=== PATIENT | female | born 1950 | race Hispanic/Latino ===

== ENCOUNTER 2023-11-17 11:21 | Emergency (ER) | payer OTHER, MEDICARE ==
[~2023-11-17] VITALS: Ht 157.5 cm; Wt 56.7 kg
[~2023-11-17 11:21] MED LIST: ACAR50TA5 PO; ASPI-1197 PO; ATOR20TA65 PO; FENO54TA6 PO; GLIP10TA9 PO; LOSA25TA41 PO; METF-444 PO
[2023-11-17 12:45] LABS: BASOPHILS # (AUTO) 0.13 K/uL (0.00-0.20); BASOPHILS % (AUTO) 1.8 % (0.0-5.0); EOSINOPHILS # (AUTO) 0.26 K/uL (0.00-0.70); EOSINOPHILS % (AUTO) 3.5 % (0.0-8.0); HEMATOCRIT 40.7 % (36-48); IMMATURE GRANULOCYTE ABSOLUTE 0.01 K/uL (0-1); LYMPHOCYTES # (AUTO) 2.4 K/uL (1.0-4.8); LYMPHOCYTES % (AUTO) 32.8 % (21.0-51.0); MEAN CORPUSCULAR HEMOGLOBIN 30.6 pg (27.0-33.0); MEAN CORPUSCULAR HGB CONC 35.1 g/dL (32.0-36.0); MONOCYTES # (AUTO) 0.7 K/uL (0.1-1.0); MONOCYTES % (AUTO) 9.1 % (3.0-13.0); NEUTROPHILS # (AUTO) 3.9 K/uL (1.8-7.7); NEUTROPHILS % (AUTO) 52.7 % (40.0-77.0); PLATELET COUNT (AUTO) 318 K/uL (130-400); RED BLOOD CELL COUNT(AUTO) 4.68 MIL/uL (4.00-5.50); RED CELL DISTRIBUTION WIDTH 13.1 % (11.0-15.5); WHITE BLOOD COUNT (AUTO) 7.4 K/uL (4.8-10.8)
[2023-11-17 12:53] LABS: CREATININE 0.6 mg/dL (0.5-1.5); POTASSIUM 4.1 mmol/L (3.5-5.1)
[2023-11-17 12:59] LABS: BILIRUBIN,TOTAL 0.4 mg/dL (0.2-1.0); TOTAL PROTEIN, SERUM 8.3 g/dL (6.0-8.3)
[2023-11-17] MEDS: KETOROLAC 15MG/ML VIAL (15MG/ML) IV ONE (12:59)
[2023-11-17] MEDS: 0.9%NACL 1000ML 1,000 ML IV ONE (12:59)
[2023-11-17] MEDS ORDERED: IOHEXOL-350 75 ML VIAL IV ONE (13:16)
[2023-11-17 13:21] LABS: ADD UA MICROSCOPIC YES
[2023-11-17 13:22] LABS: APPEARANCE,URINE CLOUDY (CLEAR); BACTERIA,URINE FEW /HPF (None Seen); BILIRUBIN,URINE NEGATIVE (NEGATIVE); COLOR,URINE LIGHT-YELLOW (YELLOW); GLUCOSE, URINE (UA) >=1000 mg/dL (NEGATIVE); KETONES,URINE NEGATIVE (NEGATIVE); LEUKOCYTE ESTERASE ,URINE 500 Leu/uL (NEGATIVE); MUCUS,URINE RARE LPF (None Seen); NITRATE,URINE 2+ (NEGATIVE); OCCULT BLOOD,URINE NEGATIVE (NEGATIVE); PH,URINE 5.5 (5.0-8.0); PROTEIN,URINE NEGATIVE (NEGATIVE); UROBILINOGEN,URINE 0.2 mg/dL (0.2-1.0); WBC,URINE TNTC /HPF (0-1)
[2023-11-17] MEDS: AMOX/CLAV 875/125MG TAB PO ONE (15:21)
[2023-11-17] MEDS ORDERED: AMOX1TAB16 PO (15:52)
[2023-11-17 15:55] VITALS: BP 110/45; PULSE 74; RESP 18; O2SAT 100
== END 2023-11-17 16:17 | disposition home or self-care (01) ==
LOC: EDH 11:21
DX: K62.89 Other specified diseases of anus and rectum (principal); N30.00 Acute cystitis without hematuria; E86.0 Dehydration; K57.30 Diverticulosis of large intestine without perforation or abscess without bleeding; E11.9 Type 2 diabetes mellitus without complications; I10 Essential (primary) hypertension; Z79.82 Long term (current) use of aspirin; Z79.84 Long term (current) use of oral hypoglycemic drugs; Z79.899 Other long term (current) drug therapy; Z90.710 Acquired absence of both cervix and uterus
CPT/HCPCS: 99285; 74177; 96374; 96361; 80053; 83690; 85025; 87077; 87088; 87186; 81001; 36415; J7030; J1885; Q9967